=== PATIENT | female | born 1990 | race Hispanic/Latino ===

== ENCOUNTER 2016-12-19 22:01 | Emergency (ER) | payer OTHER ==
[~2016-12-19] VITALS: Ht 167.6 cm; Wt 73.6 kg
[~2016-12-19 22:01] MED LIST: HYDR-4003 PO; IBUP800T28 PO; PREN-56 PO
[2016-12-19 22:02] VITALS: BP 135/75; PULSE 102; RESP 20; O2SAT 100
[2016-12-19] MEDS ORDERED: 0.9% Sodium Chloride 1,000 ML IV ONE ×2 (22:15→23:55)
[2016-12-19] MEDS ORDERED: HYDROmorphone 0.5 mg/0.5 mL iSecure Syringe IVPUSH PRN (22:15)
[2016-12-19] MEDS ORDERED: Ondansetron 2 mg/mL 2 mL Inj IVPUSH ONE (22:15)
--- NOTE | 2016-12-19 22:16 | ED.REPORT ---
HPI-NVD Date of Service December 19, 2016 ED Provider: Zeeshan Levy MD The patient is a 26 year old female with a history of migraines, tubal , and ovarian cysts s/p removal who presents to the ED with diffuse abdominal cramping onset yesterday, worsening at 1500 today. The pain radiates to her lower back and vagina. Associated symptoms include headache, diarrhea, and hematochezia described as "stool with blood clots" onset today. The patient took Ibuprofen at 21:30 this evening. She has had similar pain in the past associated with the ovarian cyst removal. Nursing Notes Stated Complaint: PAIN IN STOMACH Chief Complaint: Female Abdominal Pain Nursing Notes Reviewed: Yes ([employer], [employer] not reconciled) Allergies: Coded Allergies: No Known Allergies (Unverified Allergy, Unknown, 10/26/15) Scheduled [id number]/Iron Fumarate/FA/Dss ( 19 Tablet) 1 Each Tablet 1 EACH PO DAILY Scheduled PRN Hydrocodone-Acetaminophen 5-325 mg (Hydrocodone-Acetaminophen 5-325 mg) 1 Each Tablet 1-2 TABLET PO Q4H PRN PRN For Pain Hydrocodone-Acetaminophen 5-325 mg (Hydrocodone-Acetaminophen 5-325 mg) 1 Each Tablet 1-2 TABLET PO Q4-6H PRN PRN For Pain Ibuprofen (Ibuprofen) 800 Mg Tablet 800 MG PO Q6H PRN PRN For Pain General Time Seen by MD: 22:09 Chief Complaint Abd pain, cramping Hx Obtained From: Patient Arrived By: Walk-in Onset Occurred: Yesterday Symptom Duration: Since onset Diarrhea: Diarrhea is bloody Location: : Diffuse Quality: Cramping, Painful Radiation: : To back Severity: Current: Moderate Severity: Maximum: Moderate Pertinent Negative: Relieved by nothing Recent Healthcare: No recent doctor visit Similar Sx Previous: Yes Past Medical History Past Medical History Notes: OB: Dr. 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 Ambulatory Status Independent Review of Systems Review of Systems Note: + Vaginal pain Constitutional: Denies: Fever GI: Reports: Abdominal pain (Diffuse cramping ), Diarrhea, Hematochezia (Stool with blood clots) Neurologic: Reports: Headache Complete sys rev & neg: except as marked. Respiratory: Denies: Non-productive cough, Shortness of breath Musculoskeletal: Reports: Back pain Physical Exam Initial Vital Signs Vital Signs (First) Date Time Temp Pulse Resp B/P Pulse Ox O2 Delivery O2 Flow Rate FiO2 12/19/16 22:02 37.4 102 20 135/75 100 Room Air Initial VS: Reviewed, Vital signs abnormal (tachycardia) Head / Eyes: Atraumatic, Normocephalic Neck: Supple, Full range of motion Respiratory: Breath sounds normal, Clear to auscultation, No respiratory distress Cardiovascular: Regular rate & rhythm, Heart sounds normal Skin: Warm, Dry, No cyanosis Neurologic: Alert, Oriented, Nonfocal Psychiatric: Mood/affect normal, Behavior normal, Normal thought content General/Constitutional: Awake, Alert Appearance / Presentation: Positive: Uncomfortable Patient is holding her abdomen Abdomen: Soft, No palpable mass Tenderness/Guarding/Rebound: Positive: Tender diffuse Interpretation & Diagnostics URINE : Negative URINE DIPSTICK: Bedside Urine Specific [place] * 1.015 Bedside Urine pH * 6 Bedside Urine Leukocyte Esterase * Trace Bedside Urine Nitrite * Negative Bedside Urine Protein * Trace Bedside Urine Glucose * Normal Bedside Urine Ketones * Negative Bedside Urine Urobilinogen * Normal Bedside Urine Bilirubin * Negative Bedside Urine Occult Blood * Trace Urine to Lab * Yes Lab Results Interpretation Result Diagram: 12/19/16223712/19/162237 Test 12/19/16 22:38 White Blood Count 9.7th/mm3 (3.8-10.1) Red Blood Count 4.65mil/mm3 (3.90-5.20) Hemoglobin 13.6g/dL (12.0-15.6) Hematocrit 40.6% (35.0-46.0) Mean Corpuscular Volume 87.3fL (81-100) Mean Corpuscular Hemoglobin 29.2pg (27.0-35.0) Mean Corpuscular Hemoglobin Concent 33.5% (32.0-37.0) Red Cell Distribution Width 13.5% (12.3-15.4) Platelet Count 230bil/L (150-400) Neutrophils (%) (Auto) 77.8% (40-74) Lymphocytes (%) (Auto) 11.1% (14-46) Monocytes (%) (Auto) 9.9% (4-12) Eosinophils (%) (Auto) 1.0% (0-5) Basophils (%) (Auto) 0.1% (0-3) Sodium Level 138mEq/L (134-144) Potassium Level 4.0mEq/L (3.5-5.2) Chloride Level 105mEq/L (97-108) Carbon Dioxide Level 17mmol/L (18-29) Blood Urea Nitrogen 14mg/dL (6-20) Creatinine 0.52mg/dL (0.57-1.00) Estimat Glomerular Filtration Rate 206mL/min (>59) Glucose Level 116mg/dL (60-99) Lactic Acid Level 1.2mmol/L (0.4-2.0) Calcium Level 9.0mg/dL (8.5-10.1) Total Bilirubin 0.2mg/dL (0.0-1.2) Aspartate Amino Transf (AST/SGOT) 16U/L (0-50) Alanine Aminotransferase (ALT/SGPT) 16U/L (0-32) Alkaline Phosphatase 95U/L (25-150) Total Protein 7.2g/dL (6.4-8.4) Albumin 3.7g/dL (3.4-5.0) Human Chorionic Gonadotropin, Qual Negative (Negative) Lab Results Interpretation: CBC normal CMP low CO2 consistent dehydration Negative After numerous hours, unfortunately patient was unable to provide a stool sample for testing. Re-Eval/Medical Decision Med Decision/Clinical Course This is a 26-year-old healthy female who presents complaining of onset of bloody diarrhea and abdominal cramps. She has no recent travel history, no known diarrheal exposures, no previous history of inflammatory bowel disease or colitis, no additional complaints. She is uncomfortable on initial evaluation, but is afebrile and nontoxic. She IV placed, laboratories were normal except for a mildly low CO2, and she was hydrated C pain medicines complete resolution of discomfort. She is maintained in the department for a number of hours in an attempt to obtain a stool sample for further testing as the stool tests to be the most useful in identifying actual potential pathology at this stage. The patient was unable to have further diarrhea vital sample, feel so well she wishes to go home. I had written a prescription for some hydrocodone, the patient essential need to return if she is having ongoing diarrhea for stool testing. Invasive etiology cannot be excluded. However the patient clinically appears well's nontoxic, afebrile so. Antibodies are also not indicated. She has no known Escherichia coli LH157 risk factors. She has no evidence of renal failure. The patient clinically appears well and is being discharged. Condition with routine and return precautions reviewed. Source of Hx: Old records Re-Evaluation/Progress #1: Time of Eval: 22:56 Patient Status: Condition improved, Pain improved Re-Evaluation/Progress Note: Patient is feeling much better. Re-Evaluation/Progress #2: Time of Eval: 00:22 Patient Status: Condition improved Re-Evaluation/Progress Note: Discussed with patient and her family lab results and plan for stool sample collection. Re-Evaluation/Progress #3: Time of Eval: 01:15 Patient Status: Condition improved Re-Evaluation/Progress Note: Patient has been unable to provide a stool sample but is feeling better and requests to be discharged. Discussed with patient lab results, diagnosis, and plan for discharge. Follow-up and return to the ER instructions given. Patient agrees with plan for care and all questions were addressed. Differential Diagnosis: Negative: Drug toxicity, Drug-med reaction, GERD, Peptic ulcer disease, Counseled Regarding: Diagnosis, Lab results, Need for follow-up, When/why to return to ED Discharge & Departure Impression: Primary Impression: Bloody diarrhea Disposition: Home Discharge Condition All VS Reviewed: Yes Condition: Improved Additional Instructions: 1. Your blood tests were normal except for markers of mild dehydration. 2. The most important test in determining the cause of the bloody diarrhea is the stool test. We were not able to get a stool sample during your visit. If you are continuing to have bloody diarrhea, return to the ED so we can try again to get a sample. 3. Rest. 4. Take hydrocodone/APAP 5/325 1-2 tabs up to every 4-6 hours for cramping/ pain. NOTE: This medication contains a narcotic and causes drowsiness. No driving for at least 4-6 hours after taking. 5. Drink small, frequent sips of fluids. Slowly advance diet as tolerated 6. Return again to the emergency department if new, worsening, or uncontrolled symptoms occur. Referrals: Rosendo Mireles MD (PCP) Scribe Attestation Portions of this note were transcribed by Caridad Fry. I, Dr. Levy, personally performed the history, physical exam, and medical decision-making; I reviewed and confirmed the accuracy of the information in the transcribed note. Signed by: Chaz Raines, 12/20/2016, 01:20 copies to: Rosendo Mireles MD, Matthew F MD December 19, 2016 22:16 CARIDAD FRY December 19, 2016 22:18
[2016-12-19 22:42] LABS: BASOPHILS % (AUTO) 0.1 % (0-3); MONOCYTES % (AUTO) 9.9 % (4-12); Mean Corpuscular Hemoglobin 29.2 pg (27.0-35.0); Mean Corpuscular Volume 87.3 fL (81-100); NEUTROPHILS % (AUTO) 77.8 % (40-74); Platelet Count 230 bil/L (150-400)
[2016-12-19] MEDS ORDERED: _HYDROcodone/APAP 5-325 mg Tablet PO PRN (23:55)
[2016-12-20] MEDS ORDERED: HYDR-4003 PO (00:33)
[2016-12-20 01:19] VITALS: BP 121/58; PULSE 86; RESP 20; O2SAT 100
[2016-12-21] MEDS ORDERED: IBUP-1827 PO (19:49)
== END 2016-12-20 01:19 | disposition home or self-care (01) ==
LOC: SED 22:01
DX: K92.1 Melena (principal); R51 Headache
CPT/HCPCS: 36415; 80053; 81025; 83605; 84703; 85025; 96361; 96374; 96375; 99284; J1170; J2405; J7030

== ENCOUNTER 2016-12-21 10:57 | Inpatient (IN) | payer OTHER ==
[~2016-12-21] VITALS: Ht 167.6 cm; Wt 74.0 kg
[2016-12-21 11:04] VITALS: BP 100/57; PULSE 102; RESP 14; O2SAT 98
--- NOTE | 2016-12-21 12:35 | ED.REPORT ---
HPI-Abd Pain F Under 40 Date of Service December 21, 2016 ED Provider: Breezy Ramirez DO The patient is a 26 year old female with history of ovarian cysts and prior tubal , who returns to the emergency department complaining of worsening bloody diarrhea that began a few days ago. She is having about 6 episodes of diarrhea per hour. She describes the diarrhea as "bright red blood. " She also complains of lower abdominal cramping that radiates into her back and groin, headache, and nausea. She describes the pain as sharp, crampy, and constant. She was seen in the emergency department 2 days ago for the same. She was unable to provide a stool sample at that time. She was stable and discharged home on Vicodin. She has been taking the Vicodin with temporary relief. Her symptoms have worsened since she was seen. She brought a stool sample with her today. She denies dysuria, urinary frequency/urgency changes, vaginal bleeding, vaginal discharge, vomiting, fever or chills. Nursing Notes Stated Complaint: ABDOMINAL PAIN/BLOOD IN STOOL Chief Complaint: Female Abdominal Pain Nursing Notes Reviewed: Yes Allergies: Coded Allergies: No Known Allergies (Unverified Allergy, Unknown, 10/26/15) Scheduled PRN Hydrocodone-Acetaminophen 5-325 mg (Hydrocodone-Acetaminophen 5-325 mg) 1 Each Tablet 1-2 TABLET PO Q4H PRN PRN For Pain Ibuprofen (Ibuprofen) 800 Mg Tablet 800 MG PO Q6H PRN PRN For Pain General Time Seen by MD: 12:33 Chief Complaint Other (bloody stools) Hx Obtained From: Patient Arrived By: Walk-in Sudden in Onset?: Yes Onset Occurred: 4 days ago Symptom Duration: Since onset Progression since Onset: Constant, Gradually worsening Location: : Abdomen lower Quality: Cramping, Sharp Radiation: : Back: Inguinal right Severity: Current: Mild Severity: Maximum: Moderate Recent Healthcare: No recent hospitalization, Recent doctor visit Similar Sx Previous: No Past Medical History Past Medical History Notes: OB: Dr. 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 Ambulatory Status Independent Review of Systems Constitutional: Denies: Chills, Fever GI: Reports: Abdominal pain, Diarrhea, Hematochezia, Nausea, Denies: Vomiting Female: Denies: Dysuria, Urinary frequency, Urinary urgency, Urination decreased, Urination increased, Vaginal bleeding - abnl, Vaginal discharge Musculoskeletal: Reports: Back pain Complete sys rev & neg: except as marked. Neurologic: Reports: Headache Physical Exam Initial Vital Signs Vital Signs (First) Date Time Temp Pulse Resp B/P Pulse Ox O2 Delivery O2 Flow Rate FiO2 12/21/16 11:04 36.4 102 14 100/57 98 Room Air Initial VS: Reviewed Head / Eyes: Atraumatic, Normocephalic, PERRL ENT: Mucous membranes moist, Conjunctiva normal, No scleral icterus Neck: Supple, Non-tender, Full range of motion Lymphatic: No lymphadenopathy Extremities: Vascular intact, Neuro intact, No swelling, No tenderness Skin: Warm, Dry, No cyanosis Neurologic: Alert, Oriented, Nonfocal Psychiatric: Mood/affect normal, Behavior normal, Normal thought content General/Constitutional: Awake, Alert, Cooperative Respiratory / Chest: Atraumatic, Breath sounds NL, Breath sounds = bilat, No respiratory distress, No rales, No rhonchi, No wheezing Cardiovascular: Heart rate NL, Regular rhythm, Heart sounds NL, No gallop, No murmurs, No rubs, Peripheral circulation NL Abdomen: Soft, No guarding, No rebound, BS normoactive, No distention, No hernia, No palpable mass, No pulsatile mass Tenderness/Guarding/Rebound: Positive: Tender diffuse (mild) Back: Atraumatic, Inspection NL Rectum / Perineum: Atraumatic, No gross blood, No fissures, No hemorrhoids, No mass, Sphincter tone NL Rectal for Blood: Positive: Blood - occult heme + (faint) Interpretation & Diagnostics Lab Results Interpretation Result Diagram: 12/21/16 1400 12/21/16 1205 Test 12/21/16 12:05 12/21/16 14:00 12/21/16 14:31 White Blood Count 10.9th/mm3 (3.8-10.1) Red Blood Count 4.91mil/mm3 (3.90-5.20) Mean Corpuscular Volume 85.7fL (81-100) Mean Corpuscular Hemoglobin 28.9pg (27.0-35.0) Mean Corpuscular Hemoglobin Concent 33.7% (32.0-37.0) Red Cell Distribution Width 13.4% (12.3-15.4) Platelet Count 239bil/L (150-400) Neutrophils (%) (Auto) 79.3% (40-74) Lymphocytes (%) (Auto) 11.6% (14-46) Monocytes (%) (Auto) 8.5% (4-12) Eosinophils (%) (Auto) 0% (0-5) Basophils (%) (Auto) 0.2% (0-3) Sodium Level 136mEq/L (134-144) Potassium Level 4.4mEq/L (3.5-5.2) Chloride Level 99mEq/L (97-108) Carbon Dioxide Level 22mmol/L (18-29) Blood Urea Nitrogen 9mg/dL (6-20) Creatinine 0.76mg/dL (0.57-1.00) Estimat Glomerular Filtration Rate 133mL/min (>59) Glucose Level 109mg/dL (60-99) Calcium Level 9.2mg/dL (8.5-10.1) Total Bilirubin 0.3mg/dL (0.0-1.2) Aspartate Amino Transf (AST/SGOT) 65U/L (0-50) Alanine Aminotransferase (ALT/SGPT) 68U/L (0-32) Alkaline Phosphatase 82U/L (25-150) Total Protein 7.0g/dL (6.4-8.4) Albumin 3.7g/dL (3.4-5.0) Hemoglobin 11.6g/dL (12.0-15.6) Hematocrit 34.7% (35.0-46.0) Hold Urine Received (Received) CT Abd / Pelvis Interpretation IMPRESSION: Colitis appears present, relatively mild in overall severity involving the left third of the transverse colon, descending colon and the sigmoid and rectum to a mild degree. No diverticulitis or abscess is suspected. Dictated by: Zelalem Mendez M.D. on 12/21/2016 at 15:09 Study type: Abdominal CT IV contrast Interpretation / Wet Read by: Interpret - Radiologist Re-Eval/Medical Decision Med Decision/Clinical Course Med Decision/Clinical Course: Ongoing bloody stools and abdominal pain. She has had multiple bloody stools while in the ER. Currently waiting on stool studies. Patient will be admitted for pain management fluid hydration. Source of Hx: Old records Re-Evaluation/Progress : Time of Eval: 16:58 Re-Evaluation/Progress Note: Rechecked the patient. She has continued pain and has had 3 bloody bowel movements while she has been here. Discussed plan to wait for stool sample. The patient would like to be admitted to the hospital overnight. She denies any meth or cocaine use. Consultation #1: Referral / Consult Name: Josep Damon MD Requested Call at: 16:24 Call Returned at: 16:32 Awning Hanger Supervisor: Agrees with eval, Agrees with plan Note: Spoke to the on-call educational aid about the patient's case. He is unsure if the patient should be admitted or discharged. If she is discharged he can see her in clinic in 1 week. Will wait for stool sample. Consultation #2: Referral / Consult Name: Miko Banks MD Consulted With: Hospitalist Requested Call at: 17:02 Call Returned at: 17:21 Awning Hanger Supervisor: Will see patient, Agrees with eval, Agrees with plan, Accepts admit Counseled Regarding: Diagnosis, Lab results, Need for admission Discharge & Departure Primary Impression: Colitis Additional Impression: Bloody diarrhea Disposition: ADMITTED TO HOSPITAL Discharge Condition All VS Reviewed: Yes Condition: Stable Referrals: Rosendo Mireles MD (PCP) [place] Attestation Portions of this note were transcribed by Margaret Mejia. I, Dr. Ramirez personally performed the history, physical exam and medical decision-making; I reviewed and confirmed the accuracy of the information in the transcribed note. Signed by: Chaz Olvera, 12/21/2016 at 1730. copies to: Rosendo Mireles MD, Timothy S DO December 21, 2016 12:35 Margaret Mejia December 21, 2016 12:50
[2016-12-21 12:38] LABS: BASOPHILS % (AUTO) 0.2 % (0-3); EOSINOPHILS % (AUTO) 0 % (0-5); MONOCYTES % (AUTO) 8.5 % (4-12); Mean Corpuscular Hemoglobin 28.9 pg (27.0-35.0); Mean Corpuscular Volume 85.7 fL (81-100); NEUTROPHILS % (AUTO) 79.3 % (40-74); Platelet Count 239 bil/L (150-400)
[2016-12-21] MEDS ORDERED: 0.9% Sodium Chloride 1,000 ML IV ONE ×2 (13:00→16:35)
[2016-12-21] MEDS: Ondansetron 2 mg/mL 2 mL Inj IVPUSH PRN ×3 (13:25→23:31)
--- NOTE | 2016-12-21 15:13 | DRSVH ---
PROCEDURE: CT ABDOMEN AND PELVIS WITH CONTRAST (PNL-7102) INDICATIONS: abd pain, bloody stools TECHNIQUE: After the administration of intravenous contrast, 5 mm thick sections acquired from the diaphragm to the symphysis. 5 mm coronal and sagittal reformats were acquired. For radiation dose reduction, the following was used: automated exposure control, adjustment of mA and/or kV according to patient siz e. COMPARISON: [facility], CT, ABD/PELVIS W/CON (PNL), 09/28/2010, 0:31. FINDINGS: Image quality: Excellent. ABDOMEN: Lung bases: Lung bases are clear. Heart size is normal. Solid organs: Liver and spleen are normal in size and enhancement. Gallbladder appears normal. Ismael iary system is non dilated. Pancreas enhances normally. No adrenal nodules. Kidneys demonstrate no rmal size and enhancement, without hydronephrosis. Peritoneum and bowel: Bowel loops demonstrate normal wall thickness and caliber. No free fluid or a ir. Nodes and vessels: No retroperitoneal or mesenteric adenopathy by size criteria. Aorta and inferior vena cava are normal in size. Miscellaneous: No ventral hernias. PELVIS: Genitourinary: Bladder wall thickness is normal. Miscellaneous: No inguinal hernias or adenopathy. Mild sigmoid and rectal wall thickening, mild per icolonic edema in the fatty soft tissues immediately adjacent. No sign of abscess formation or diver ticulitis. The inflammatory process appears to extend into the transverse colon to a mild degree, te rminating at approximately the junction of the middle and lateral left transverse colon. Bones: No suspicious bony lesions. No vertebral body compression fractures. IMPRESSION: Colitis appears present, relatively mild in overall severity involving the left third of the transverse colon, descending colon and the sigmoid and rectum to a mild degree. No diverticuliti s or abscess is suspected. Dictated by: Zelalem Mendez M.D. on 12/21/2016 at 15:09 Approved by: Zelalem Mendez M.D. on 12/21/2016 at 15:12
[2016-12-21] MEDS ORDERED: Alum-Mag Hydrox-Simeth 30 mL Suspension PO PRN (17:25)
[2016-12-21] MEDS ORDERED: metroNIDAZOLE Inj 1,000 MG in IV Premix 1 EACH IV ONE (18:00)
[2016-12-21] MEDS ORDERED: levoFLOXacin Inj 750 MG in IV Premix 1 EACH IV ONE (18:00)
--- NOTE | 2016-12-21 18:08 | PCM.HPMED ---
Subjective Date of Service December 21, 2016 Primary Provider: Admitting Physician: Miko Banks MD Primary Care Physician: Rosendo Mireles MD Attending Physician: Miko Banks MD Chief Complaint: Abdominal pain, bloody diarrhea History of Present Illness: 26-year-old female with past medical history came in with progressive worsening abdominal pain, diarrhea, bloody stool About 4 days ago, patient started having watery diarrhea, mild degree of abdominal pain continuously, also developed nausea, but no vomiting, pt did not recall any unusual food intake, denied any sick contact. Next day, diarrhea was worse, patient also had some headache, but thought it was from migraine, it did not last long. Next day 2days ago, Patient came to the ED, but was sent home after supportive tx since then, patient started having some blood clots with diarrhea, today, abdominal pain got worse and noticed pure red watery diarrhea, without stool contents, had 3 similar stools in ED. no mucus noticed. this was first episode of blood stools per patient, denied FHx of IBD ED. VS [id number], [id number], afebrile, 98%on RA. stool PCR sent. Abd CT showed diffuse mild colitis involving the left third of the transverse colon, descending colon and the sigmoid and rectum to a mild degree. Review of Systems: Pertinent positives as noted in history of present illness. All other systems were reviewed and are negative Allergies Coded Allergies: No Known Allergies (Unverified Allergy, Unknown, 10/26/15) Home Medications Not taking any prescribed or [id number]-oerczuh medicines PMH No significant medical problem Surgical History Surgery for tubal Ovarian cyst removal Family History No pertinent, no history of inflammatory bowel disease Social History Hx Alcohol Use: No Hx Substance Use: No Hx Tobacco Use: No Smoking Status: Never Smoker Additional Information Lives with grandmother Exam Vital Signs Vital Sign - Last Date Time Temp Pulse Resp B/P Pulse Ox O2 Delivery O2 Flow Rate FiO2 12/21/16 11:04 36.4 102 14 100/57 98 Room Air Exam NAD, mildly distressed, weak due to abdominal pain no JVD, MMM, no LAD RRR, nl s1, s2 no mrg CTAB, no w,c S,ND, diffuse tenderness, hypoactive bowel sounds warm, no edema, pulses 2/2 Lab and Diagnostics Result Diagram: 12/21/16 1400 12/21/16 1205 X-Rays, CTs and MRIs PROCEDURE: CT ABDOMEN AND PELVIS WITH CONTRAST ([id number]) INDICATIONS: abd pain, bloody stools TECHNIQUE: After the administration of intravenous contrast, 5 mm thick sections acquired from the diaphragm to the symphysis. 5 mm coronal and sagittal reformats were acquired. For radiation dose reduction, the following was used: automated exposure control, adjustment of mA and/or kV according to patient size. COMPARISON: [facility], CT, ABD/PELVIS W/CON (PNL), 09/28/2010, 0: 31. FINDINGS: Image quality: Excellent. ABDOMEN: Lung bases: Lung bases are clear. Heart size is normal. Solid organs: Liver and spleen are normal in size and enhancement. Gallbladder appears normal. Biliary system is non dilated. Pancreas enhances normally. No adrenal nodules. Kidneys demonstrate normal size and enhancement , without hydronephrosis. Peritoneum and bowel: Bowel loops demonstrate normal wall thickness and caliber. No free fluid or air. Nodes and vessels: No retroperitoneal or mesenteric adenopathy by size criteria. Aorta and inferior vena cava are normal in size. Miscellaneous: No ventral hernias. PELVIS: Genitourinary: Bladder wall thickness is normal. Miscellaneous: No inguinal hernias or adenopathy. Mild sigmoid and rectal wall thickening, mild pericolonic edema in the fatty soft tissues immediately adjacent. No sign of abscess formation or diverticulitis. The inflammatory process appears to extend into the transverse colon to a mild degree, terminating at approximately the junction of the middle and lateral left transverse colon. Bones: No suspicious bony lesions. No vertebral body compression fractures. IMPRESSION: Colitis appears present, relatively mild in overall severity involving the left third of the transverse colon, descending colon and the sigmoid and rectum to a mild degree. No diverticulitis or abscess is suspected. Dictated by: Zelalem Mendez M.D. on 12/21/2016 at 15:09 Approved by: Zelalem Mendez M.D. on 12/21/2016 at 15:12 Assessment & Plan Acute, active acute, new onset hematochezia, POA, CT showed diffuse colitis involving rectum as well. Given it's first episode, young age, no PMH ddx: infectious colitis vs IBD. FOBT+ in ED. -clear liquid for tonight, NPO after MN, for possible EGD/c-scope -will consult GI tomorrow AM if stools neg for infection -flagyl, levaquin for now until stool PCR returns -given dehydrated state, will continue IVF 150cc/hr NS, repletes lytes K>4,Mg>2 -PPI iv BID, H2 hillary prn, zofran prn for n/v, -tylenol prn for pain, -trends h/h, transfuse hgb target>7 dispo:Patient will be admitted with inpatient status with expectation of inpatient therapy for more than 2 midnights diet:clear, NPO after MN dvt ppx:SCD Full code Time spent 65min Miko Banks MD December 21, 2016 18:08
[2016-12-21] MEDS ORDERED: Pantoprazole 4 mg/mL 10 mL Inj IVPUSH ONE (18:10)
[2016-12-21 18:31] VITALS: BP 103/56; PULSE 102; RESP 16; O2SAT 98
[2016-12-21 18:32] VITALS: BP 108/68; PULSE 103; RESP 20; O2SAT 99
[2016-12-21] MEDS: HYDROmorphone 1 mg/mL Inj IVPUSH PRN ×2 (18:36→21:54)
[2016-12-21] MEDS: 0.9% Sodium Chloride 1,000 ML IV SCH (18:36)
--- NOTE | 2016-12-21 19:24 | NUR ---
Admit Pt on unit at 1825 in [facility], able to transfer self to bed. Pt A&O x 3, SIU, low BP and elevated HR, pt warm. Pt has 9/10 abdominal pain, medications given and IV connected to fluids. Pt on RA. Pt oriented to room, call light and visiting hours. Pt able to have small BM and sample sent to lab since ED RN was unsure if she had sent enough stool earlier. Bed in low, call light in reach.
[2016-12-21] MEDS ORDERED: IBUP-1827 PO (19:49)
[2016-12-21 20:22] VITALS: BP 107/70; PULSE 90; RESP 20; O2SAT 99
--- NOTE | 2016-12-21 22:28 | CONS ---
[address] [address] CONSULTATION REPORT PATIENT: SHALOM DAWKINS : 1990 MR#: [id number] ADMIT: 12/21/2016 JOB ID: [id number] DATE OF SERVICE: 12/21/2016 It was a pleasure seeing this patient at [facility] service for evaluation of colitis and bloody diarrhea. This is a 26-year-old lady who was in her usual state of health until last week. The patient started having abdominal cramping in the lower abdomen continuously and started having watery diarrhea. Later, developed nausea. During this time, she did not have any unusual food. Nobody in her household was sick. The last time she had any kind of meat such as chicken was at her uncle's house last week, but nobody was sick other than herself. There was no sick contact. There was no camping. The following day, she has increased frequency of diarrhea as well as the quantity. For the next couple of days, this got worse and she started seeing blood in the stools. She came to the ED and in the ED they sent her home because she did not meet admission criteria. Then she came back again with worsening abdominal pain, having blood in the diarrhea with clots. At times, she only saw pure red watery diarrhea without any stools. In the ED, she was hypotensive, tachycardic and CT showed diffuse mild colitis involving the left 3rd of the transverse colon, descending colon, sigmoid colon, and, to some extent, the rectum. They also did stool studies which came back positive for salmonella, negative for Giardia. Currently, she is complaining of abdominal pain. Some nausea. No vomiting. Patient denies fever, chills, headaches, blurred vision, dizziness, lightheadedness, chest pain, shortness of breath. She has fatigue, weakness. No skin rash or joint pain and she is still having diarrhea. Unsure whether she lost any weight. ALLERGIES: To no drugs. MEDICATIONS: She is not taking medications at home. PAST SURGICAL HISTORY: Tubal . Ovarian cyst removal. PAST MEDICAL HISTORY: Noncontributory. FAMILY HISTORY: Noncontributory. SOCIAL HISTORY: Denies alcohol, substance abuse, tobacco. MEDICATIONS IN THE HOSPITAL: 1. Dilaudid. 2. Tylenol. 3. Pantoprazole. 4. Flagyl. 5. Levofloxacin. 6. Zofran. 7. Maalox. PHYSICAL EXAMINATION: Vitals: Temp 36.6, pulse 90, respirations 20, blood pressure 107/70. Head and neck: No icterus, no lymphadenopathy. Lungs clear. Cardiovascular: Regular rate and rhythm. Normal S1, S2. Abdomen is soft, mildly distended. Bowel sounds are present with diffuse tenderness and mild rebound, but there is no guarding or firmness. Extremities: No pitting edema of the ankles. Skin shows no obvious jaundice. Radial pulses bilateral strong and intact. White count is 10.9, hemoglobin 14, at 2 o'clock 11.6, platelets of 239,000. Chemistry showed an AST of 65, ALT 68. CT scan as described above. 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 She is on Cipro and levofloxacin. The contact of salmonella is in question. It seems like nobody else at her house is sick, therefore all the contamination probably did not happen in her home. Therefore, it is possible that the contamination occurred outside her home. However, she has not got any unusual contacts or unusual travels. She did not drink any contaminated water. This is a very aggressive form of Salmonella. She has normal bilirubin. AST and ALT are mildly elevated. Creatinine is normal at 0.76. It appears that antibiotics are already committed. We need to keep an eye on the creatinine function and hemoglobin level as well. I do not think there is evidence of hemolytic anemia, however, if the bilirubin starts going up, as well as persistence of anemia, consider getting haptoglobin, LDH and peripheral blood smear for hemolytic anemia. We will follow the LFTs for now. It is also possible that if she has contaminated water from somewhere or any kind of contamination, she may be co-infected with hepatitis A. Therefore, would consider getting hepatitis A/B serologies and while doing that, I would get the full panel including acute hepatitis A, hepatitis B and hepatitis C profiles. Support her nutrition. KONSTANTIN
[2016-12-22] VITALS (7 sets, daily range): BP systolic 102–118; BP diastolic 62–74; PULSE 78–103; RESP 16–20; O2SAT 98–100
--- NOTE | 2016-12-22 02:08 | NUR ---
Stool PCR Stool PCR results noted to be positive for salmonella at beginning of shift. Patient currently on Flagyl & Levaquin IV. FYI page sent to Dr. Stevenson @ [phone]. No new orders rec'd.
[2016-12-22] MEDS: HYDROmorphone 1 mg/mL Inj IVPUSH PRN ×3 (02:36→20:02)
[2016-12-22] MEDS: 0.9% Sodium Chloride 1,000 ML IV SCH ×2 (06:17→13:23)
[2016-12-22] MEDS: Ondansetron 2 mg/mL 2 mL Inj IVPUSH PRN (07:10)
[2016-12-22] MEDS ORDERED: Pantoprazole 4 mg/mL 10 mL Inj IVPUSH SCH (07:30)
[2016-12-22] MEDS ORDERED: metroNIDAZOLE Inj 1,000 MG in IV Premix 1 EACH IV SCH (08:30)
[2016-12-22] MEDS: levoFLOXacin Inj 750 MG in IV Premix 1 EACH IV SCH (08:38)
[2016-12-22 08:44] LABS: BASOPHILS % (AUTO) 0.1 % (0-3); EOSINOPHILS % (AUTO) 0.3 % (0-5); MONOCYTES % (AUTO) 11.9 % (4-12); Mean Corpuscular Hemoglobin 28.8 pg (27.0-35.0); NEUTROPHILS % (AUTO) 72.6 % (40-74); Platelet Count 235 bil/L (150-400)
--- NOTE | 2016-12-22 08:56 | NUR ---
Social Work- Screen Note Data: EMR reviewed. Pt is a 26 year old female admitted 12/21/16 for colitis per H&P. Pt's insurance is [employer]. Pt's PCP is Rosendo Mireles MD. Pt's NOK is Kelly Sanchez [phone]. SW met with pt at bedside regarding discharge plan, SW role explained. Pt alert and oriented x3. Pt resides with her grandmother in [place]. Pt is independent at baseline. Pt has a young daughter at home. Pt denied any discharge needs. Pt has no concerns about obtaining prescriptions after this hospitalization. Pt has no DPOA, SW explained DPOA paperwork and provided this to pt at bedside. Pt to discharge home with her friend to transport via POV. No discharge needs identified at this time. SW will continue to follow if needs arise. Assessment: Pt who is independent at baseline. Plan: Pt to discharge home with her friend to transport via POV. No discharge needs identified at this time. SW will continue to follow if needs arise. Matilda Guo MSW
[2016-12-22 09:10] LABS: Magnesium 1.6 mg/dL (1.6-2.6)
--- NOTE | 2016-12-22 10:13 | PCM.PNMED ---
Subjective Date of Service Dec 22, 2016 Subjective pt still has bloody stools, less red, pinkish w/o mucus, stool content c/o persistent abdominal pain, diffusely, nausea, no vomiting overall felt better today, wants to start diet Salmonella positive in PCR, awaits confirmatory test from [facility] Exam Vital Signs Vital Sign - Last Date Time Temp Pulse Resp B/P Pulse Ox O2 Delivery O2 Flow Rate FiO2 12/22/16 09:16 36.6 89 16 116/72 99 Room Air Intake and Output 12/21/16 12/21/16 12/22/16 Cumulative From/Thru 15:00 23:00 07:00 12/21/16 11:04 - 12/22/16 06:25 Intake Total 999 ml 1994 ml 2993 ml Output Total 700 ml 700 ml Balance 999 ml 1294 ml 2293 ml Intake Oral 800 ml 800 ml IV Total 999 ml 1194 ml 2193 ml Output Urine Total 700 ml 700 ml # Voids 1 1 2 # Bowel Movements 5 5 Exam mildly distressed due to abdominal pain, more comfortable than yesterday no JVD, MMM, no LAD RRR, nl s1, s2 no mrg CTAB, no w,c S,ND, diffuse tenderness, hypoactive bowel sounds warm, no edema, pulses 2/2 IVs and Medications Medications Reviewed: Medications were reviewed in detail Lab and Diagnostics Result Diagram: 12/22/16 0835 12/22/16 0835 X-Rays, CTs and MRIs PROCEDURE: CT ABDOMEN AND PELVIS WITH CONTRAST (PNL-7102) INDICATIONS: abd pain, bloody stools TECHNIQUE: After the administration of intravenous contrast, 5 mm thick sections acquired from the diaphragm to the symphysis. 5 mm coronal and sagittal reformats were acquired. For radiation dose reduction, the following was used: automated exposure control, adjustment of mA and/or kV according to patient size. COMPARISON: [facility], CT, ABD/PELVIS W/CON (PN), 09/28/2010, 0: 31. FINDINGS: Image quality: Excellent. ABDOMEN: Lung bases: Lung bases are clear. Heart size is normal. Solid organs: Liver and spleen are normal in size and enhancement. Gallbladder appears normal. Biliary system is non dilated. Pancreas enhances normally. No adrenal nodules. Kidneys demonstrate normal size and enhancement , without hydronephrosis. Peritoneum and bowel: Bowel loops demonstrate normal wall thickness and caliber. No free fluid or air. Nodes and vessels: No retroperitoneal or mesenteric adenopathy by size criteria. Aorta and inferior vena cava are normal in size. Miscellaneous: No ventral hernias. PELVIS: Genitourinary: Bladder wall thickness is normal. Miscellaneous: No inguinal hernias or adenopathy. Mild sigmoid and rectal wall thickening, mild pericolonic edema in the fatty soft tissues immediately adjacent. No sign of abscess formation or diverticulitis. The inflammatory process appears to extend into the transverse colon to a mild degree, terminating at approximately the junction of the middle and lateral left transverse colon. Bones: No suspicious bony lesions. No vertebral body compression fractures. IMPRESSION: Colitis appears present, relatively mild in overall severity involving the left third of the transverse colon, descending colon and the sigmoid and rectum to a mild degree. No diverticulitis or abscess is suspected. Dictated by: Zelalem Mendez M.D. on 12/21/2016 at 15:09 Approved by: Zelalem Mendez M.D. on 12/21/2016 at 15:12 Assessment & Plan Acute, active acute, new onset hematochezia secondary to Salmonella colitis POA, CT showed diffuse colitis involving rectum as well. -clinically improving with current tx -appreciate follow up by GI -continue clear liquid, advance as tolerate -stopped flagyl today,continue levaquin -continue IVF 100cc/hr NS, repletes lytes K>4,Mg>2 -s/p PPI iv BID stopped today, H2 hillary prn, zofran prn for n/v, -tylenol prn for pain, mild acute anemia likely from direct blood loss with infectious colitis, initially FOBT+, no signs of hemolytic process given LDH level, -h/h stable with active mild hematochezia, improving -trends h/h, transfuse hgb target>7 -awaits retic count, haptoglobin mild transaminitis, POA, initially concern for coinfection with hepatitis or Cx from salmonella, now resolved -trends LFTs for now dispo:likely 2-3more days diet:clear, advance as tolerate dvt ppx:SCD Full code Time spent 35min Miko Banks MD Dec 22, 2016 10:09
--- NOTE | 2016-12-22 15:27 | NUR ---
Infection Prevention [facility] notified of positive Salmonella in stool culture.
--- NOTE | 2016-12-22 18:01 | NUR ---
Pain / Nausea Cramping pain and stools loose continue. Per pt stools are no longer bloody and the cramping and number of times she has to go have decreased. Nausea has also decreased with the discontinued use of narcotics. Care continues
[2016-12-23 00:35] VITALS: BP 93/55; PULSE 71; RESP 20; O2SAT 98
--- NOTE | 2016-12-23 03:52 | NUR ---
PAIN/ITCHING: Pt. requested pain medication about 2 hr after receiving Ultram and Tylenol. Reported pain at 10/10 abdominal cramping. Given 1 mg of IV Dilaudid which helped control her pain, but later on she c/o feeling itchy all over. Paged hospitalist and requested Benadryl, given 25 mg of IV Benadryl one time order only, effective. Reported one small BM diarrhea tonight. Has been up voiding several times tonight. RAC IV line itching and redness under tape. Removed and placed a new IV line on left hand. Pt's boyfriend and son sleeping in rooming in with pt. A & O, vss. On going care.
[2016-12-23 04:11] LABS: Hepatitis A Antibody IgM Negative (Negative); Hepatitis B Core Antibody IgM Negative (Negative)
[2016-12-23 05:36] VITALS: BP 91/55; PULSE 68; RESP 18; O2SAT 97
[2016-12-23] MEDS: 0.9% Sodium Chloride 1,000 ML IV SCH ×2 (05:53→09:23)
[2016-12-23 07:42] VITALS: PULSE 63
[2016-12-23] MEDS: levoFLOXacin Inj 750 MG in IV Premix 1 EACH IV SCH (09:30)
--- NOTE | 2016-12-23 09:38 | PCM.PNMED ---
Subjective Date of Service Dec 23, 2016 Subjective pt was able to tolerate soft diet, had more formed stools and pinkish waterry diarrhea alternatively, less frequent BM pain is better, but still sore has appetite, willing to try regular diet spoke to Exam Vital Signs Vital Sign - Last Date Time Temp Pulse Resp B/P Pulse Ox O2 Delivery O2 Flow Rate FiO2 12/23/16 07:42 63 12/23/16 05:36 36.5 18 91/55 97 Room Air Intake and Output 12/22/16 12/22/16 12/23/16 Cumulative From/Thru 15:00 23:00 07:00 12/21/16 11:04 - 12/23/16 06:49 Intake Total 350 ml 1198 ml 4541 ml Output Total 1200 ml 1900 ml Balance 350 ml -2 ml 2641 ml Intake Oral 350 ml 640 ml 1790 ml IV Total 558 ml 2751 ml Output Urine Total 1200 ml 1900 ml # Voids 4 2 8 # Bowel Movements 2 7 Exam mildly distressed due to abdominal pain, more comfortable than yesterday no JVD, MMM, no LAD RRR, nl s1, s2 no mrg CTAB, no w,c S,ND, diffuse tenderness, hypoactive bowel sounds warm, no edema, pulses 2/2 IVs and Medications Medications Reviewed: Medications were reviewed in detail Lab and Diagnostics Result Diagram: 12/22/16 0835 12/22/16 0835 X-Rays, CTs and MRIs PROCEDURE: CT ABDOMEN AND PELVIS WITH CONTRAST (PNL-7102) INDICATIONS: abd pain, bloody stools TECHNIQUE: After the administration of intravenous contrast, 5 mm thick sections acquired from the diaphragm to the symphysis. 5 mm coronal and sagittal reformats were acquired. For radiation dose reduction, the following was used: automated exposure control, adjustment of mA and/or kV according to patient size. COMPARISON: [facility], CT, ABD/PELVIS W/CON (PN), 09/28/2010, 0: 31. FINDINGS: Image quality: Excellent. ABDOMEN: Lung bases: Lung bases are clear. Heart size is normal. Solid organs: Liver and spleen are normal in size and enhancement. Gallbladder appears normal. Biliary system is non dilated. Pancreas enhances normally. No adrenal nodules. Kidneys demonstrate normal size and enhancement , without hydronephrosis. Peritoneum and bowel: Bowel loops demonstrate normal wall thickness and caliber. No free fluid or air. Nodes and vessels: No retroperitoneal or mesenteric adenopathy by size criteria. Aorta and inferior vena cava are normal in size. Miscellaneous: No ventral hernias. PELVIS: Genitourinary: Bladder wall thickness is normal. Miscellaneous: No inguinal hernias or adenopathy. Mild sigmoid and rectal wall thickening, mild pericolonic edema in the fatty soft tissues immediately adjacent. No sign of abscess formation or diverticulitis. The inflammatory process appears to extend into the transverse colon to a mild degree, terminating at approximately the junction of the middle and lateral left transverse colon. Bones: No suspicious bony lesions. No vertebral body compression fractures. IMPRESSION: Colitis appears present, relatively mild in overall severity involving the left third of the transverse colon, descending colon and the sigmoid and rectum to a mild degree. No diverticulitis or abscess is suspected. Dictated by: Zelalem Mendez M.D. on 12/21/2016 at 15:09 Approved by: Zelalem Mendez M.D. on 12/21/2016 at 15:12 Assessment & Plan Acute, active acute, new onset hematochezia secondary to Salmonella colitis POA, CT showed diffuse colitis involving rectum as well. -clinically improving with current tx -appreciate follow up by Dr.Choi BUSBY, -advance diet as tolerate -stopped flagyl today,continue levaquin, appreciate insight from -continue IVF 100cc/hr NS, repletes lytes K>4,Mg>2 -s/p PPI iv BID stopped today, H2 hillary prn, zofran prn for n/v, -tylenol prn for pain, mild acute anemia likely from direct blood loss with infectious colitis, initially FOBT+, no signs of hemolytic process given labs-LDH,haptoglobin -h/h stable with active mild hematochezia, improving -trends h/h, transfuse hgb target>7 mild transaminitis, POA, initially concern for coinfection with hepatitis or Cx from salmonella, now resolved -trends LFTs for now dispo:likely 1-2more days, diet:soft, advance as tolerate dvt ppx:SCD Full code VTE Mechanical Devices: Intermittant Pneumatic CD Time spent 35min Miko Banks MD Dec 23, 2016 09:13
[2016-12-23 09:56] LABS: BASOPHILS % (AUTO) 0.3 % (0-3); EOSINOPHILS % (AUTO) 1.4 % (0-5); MONOCYTES % (AUTO) 9.6 % (4-12); Mean Corpuscular Hemoglobin 28.6 pg (27.0-35.0); Mean Corpuscular Volume 85.6 fL (81-100); NEUTROPHILS % (AUTO) 59.6 % (40-74); Platelet Count 239 bil/L (150-400)
[2016-12-23 10:26] LABS: Magnesium 1.6 mg/dL (1.6-2.6); Phosphorus 3.2 mg/dL (2.5-4.9)
[2016-12-23 11:52] VITALS: BP 99/58; PULSE 84; RESP 16; O2SAT 98
[2016-12-23 15:49] VITALS: BP 103/69; PULSE 73; RESP 18; O2SAT 98
[2016-12-23 17:55] VITALS: BP 105/65; PULSE 78; RESP 20; O2SAT 98
[2016-12-23] MEDS: HYDROmorphone 1 mg/mL Inj IVPUSH PRN (21:48)
[2016-12-24] VITALS (8 sets, daily range): BP systolic 101–111; BP diastolic 52–68; PULSE 55–95; RESP 16–21; O2SAT 98–100
[2016-12-24] MEDS: 0.9% Sodium Chloride 1,000 ML IV SCH ×3 (03:55→15:51)
--- NOTE | 2016-12-24 04:26 | NUR ---
Pain Pt. reporting pain 8/10 earlier in shift. Tylenol given with no effect. 0.5 mg IV Dilaudid given, and pt. was able to fall asleep afterwards. Will continue to monitor.
[2016-12-24 05:05] LABS: BASOPHILS % (AUTO) 0.4 % (0-3); EOSINOPHILS % (AUTO) 2.1 % (0-5); MONOCYTES % (AUTO) 11.1 % (4-12); Mean Corpuscular Hemoglobin 29.1 pg (27.0-35.0); Mean Corpuscular Volume 85.3 fL (81-100); NEUTROPHILS % (AUTO) 59.9 % (40-74); Platelet Count 293 bil/L (150-400)
[2016-12-24 05:45] LABS: Magnesium 1.7 mg/dL (1.6-2.6); Phosphorus 3.7 mg/dL (2.5-4.9)
--- NOTE | 2016-12-24 06:55 | CONS ---
[address] [address] CONSULTATION REPORT PATIENT: SHALOM DAWKINS : 1990 MR#: [id number] ADMIT: 12/21/2016 JOB ID: [id number] INFECTIOUS DISEASE CONSULTATION: DATE OF SERVICE: 12/23/[address] Banks for this consult. REASON FOR CONSULTATION: Salmonella dysentery. INTERVAL HISTORY: The patient is a 26-year-old totally healthy woman admitted on December 21. On or about December 19 she developed cramps in the lower abdomen. By the next day she developed cramps and diarrhea and this became more severe on December 20. She sought at evaluation in the emergency department, but was only given symptomatic therapy and went home. She returned on December 21 with more symptomatology and was then admitted to the hospital. Prior to admission she developed not only abdominal cramps and diarrhea but bloody diarrhea which was associated with headache. She also had subjective fever as well as nausea, anorexia and generalized malaise. She did not have significant chills, sweats, headache or urinary symptoms. PAST MEDICAL HISTORY: Negative. SOCIAL HISTORY: The patient lives with her family in [place]. She is a nonsmoker, nondrinker. SURGICAL HISTORY: Tubal and ovarian cyst. FAMILY HISTORY: Negative for tuberculosis. REVIEW OF SYSTEMS: She had a headache in the beginning though it is no longer an issue. No visual changes. No sore throat. No cough, shortness of breath, chest pain. She did have a coarse of nausea with diarrhea which was bloody and severe, abdominal cramps which continue until this time. No urgency, frequency, dysuria or skin rash. The rest of the review of systems is negative. PHYSICAL EXAMINATION: Reveals an healthy young woman in no acute distress. Temperature 36.5, pulse 73, respiratory rate 18, blood pressure 103/69. She is saturating well on room air. She is awake and alert. Eyes: Negative. Oral cavity: Benign. Neck: Supple. Lungs: Clear. Cardiac: Tones, no murmur. Abdomen is slightly distended. Hyperactive bowel tones are heard. There is diffuse mild tenderness elicited to the abdomen. She does not have suprapubic tenderness. The extremities are without evidence of inflammation or synovitis. No skin rash is noted. Neurologically, she is intact. LABORATORIES: Labs include a white count 10,900 on admission; now 6400. There is a normal diff, normal platelet count. Creatinine is 0.48. LFT is normal. Albumin low at 2.7. Procalcitonin 0.2. Hepatitis C negative. Micro studies include a stool PCR positive for salmonella. Abdominal CT scan shows colitis, mild severity. No abscess. IMPRESSION: This patient has salmonella and dysentery. She has cramps, resolved, fevers and bloody stools and a CT that shows colitis. There is no evidence that she was bacteremic though it does not appear that any blood cultures were done. Given that she is a normal host, we would expect fairly rapid resolution, but she has already been here a full three days, which is a bit unusual. One would expect an uneventful, complete recovery from this and a total duration of therapy should be about seven days of either Cipro or levofloxacin. RECOMMENDATIONS: 1. The levofloxacin should be switched to oral. 2. Total duration will be one week. Levofloxacin 750 once a day orally through December 27. 3. This patient could be discharged at any time from an ID point of view. 4. If she should fail to recover as expected, we would need to obtain an old fashion stool culture and do susceptibilities. A small percentage of [place] non typhoidal salmonella strains are resistant to quinolone. 5. I would anticipate the patient could be discharged tomorrow or the next day at the latest. 6. ID will go ahead and sign off. Please do not hesitate to call if there is additional questions or problems.
[2016-12-24] MEDS: levoFLOXacin 750 mg Tablet PO SCH (08:33)
[2016-12-24] MEDS: HYDROmorphone 1 mg/mL Inj IVPUSH PRN (08:45)
[2016-12-24] MEDS: Ondansetron 2 mg/mL 2 mL Inj IVPUSH PRN (10:14)
--- NOTE | 2016-12-24 10:14 | NUR ---
Social Work: Readiness for Discharge. Data: EMR reviewed. Pt is on day 3 of hospitalization. Per AM multi-disciplinary rounds, pt is likely to discharge tomorrow when medically stable. Pt to discharge home with her friend to transport via POV. SW does not anticipate any discharge needs at this time but will continue to follow if needs arise. Assessment: Pt who is independent at baseline. Plan: Pt to discharge home with her friend to transport via POV. PEPPER does not anticipate any discharge needs at this time but will continue to follow if needs arise. CHRISTIN Szymanski
--- NOTE | 2016-12-24 12:40 | PCM.PNMED ---
Subjective Date of Service Dec 24, 2016 Subjective Levaquin switched to oral, patient still has diarrhea, pain is better but continued, tolerating general diet well, remained afebrile Exam Vital Signs Vital Sign - Last Date Time Temp Pulse Resp B/P Pulse Ox O2 Delivery O2 Flow Rate FiO2 12/24/16 11:58 36.6 82 21 111/68 98 Room Air Intake and Output 12/23/16 12/23/16 12/24/16 Cumulative From/Thru 15:00 23:00 07:00 12/21/16 11:04 - 12/24/16 06:29 Intake Total 2509 ml 2148 ml 9198 ml Output Total 650 ml 1200 ml 3750 ml Balance 1859 ml 948 ml 5448 ml Intake Oral 1320 ml 1020 ml 4130 ml IV Total 1189 ml 1128 ml 5068 ml Output Urine Total 650 ml 1200 ml 3750 ml # Voids 5 13 # Bowel Movements 4 0 11 Exam comfortable no JVD, MMM, no LAD RRR, nl s1, s2 no mrg CTAB, no w,c S,ND, diffuse tenderness, hypoactive bowel sounds warm, no edema, pulses 2/2 IVs and Medications Medications Reviewed: Medications were reviewed in detail Lab and Diagnostics Result Diagram: 12/24/16 0450 12/24/16 0450 X-Rays, CTs and MRIs PROCEDURE: CT ABDOMEN AND PELVIS WITH CONTRAST (PNL-7102) INDICATIONS: abd pain, bloody stools TECHNIQUE: After the administration of intravenous contrast, 5 mm thick sections acquired from the diaphragm to the symphysis. 5 mm coronal and sagittal reformats were acquired. For radiation dose reduction, the following was used: automated exposure control, adjustment of mA and/or kV according to patient size. COMPARISON: [facility], CT, ABD/PELVIS W/CON (PNL), 09/28/2010, 0: 31. FINDINGS: Image quality: Excellent. ABDOMEN: Lung bases: Lung bases are clear. Heart size is normal. Solid organs: Liver and spleen are normal in size and enhancement. Gallbladder appears normal. Biliary system is non dilated. Pancreas enhances normally. No adrenal nodules. Kidneys demonstrate normal size and enhancement , without hydronephrosis. Peritoneum and bowel: Bowel loops demonstrate normal wall thickness and caliber. No free fluid or air. Nodes and vessels: No retroperitoneal or mesenteric adenopathy by size criteria. Aorta and inferior vena cava are normal in size. Miscellaneous: No ventral hernias. PELVIS: Genitourinary: Bladder wall thickness is normal. Miscellaneous: No inguinal hernias or adenopathy. Mild sigmoid and rectal wall thickening, mild pericolonic edema in the fatty soft tissues immediately adjacent. No sign of abscess formation or diverticulitis. The inflammatory process appears to extend into the transverse colon to a mild degree, terminating at approximately the junction of the middle and lateral left transverse colon. Bones: No suspicious bony lesions. No vertebral body compression fractures. IMPRESSION: Colitis appears present, relatively mild in overall severity involving the left third of the transverse colon, descending colon and the sigmoid and rectum to a mild degree. No diverticulitis or abscess is suspected. Dictated by: Zelalem Mendez M.D. on 12/21/2016 at 15:09 Approved by: Zelalem Mendez M.D. on 12/21/2016 at 15:12 Assessment & Plan Acute, active acute, new onset hematochezia secondary to Salmonella colitis POA, CT showed diffuse colitis involving rectum as well. GI/ID on board. -clinically improving with current tx -advance diet as tolerate -stopped flagyl 12/23, continue levaquin iv then PO, for total 7days per -continue IVF 100cc/hr NS, repletes lytes K>4,Mg>2 -s/p PPI iv BID stopped today, H2 hillary prn, zofran prn for n/v, -tylenol prn for pain, mild acute anemia likely from direct blood loss with infectious colitis, initially FOBT+, no signs of hemolytic process given labs-LDH,haptoglobin -h/h stable with active mild hematochezia, improving -trends h/h, transfuse hgb target>7 mild transaminitis, POA, initially concern for coinfection with hepatitis or Cx from salmonella, now resolved dispo:likely tomorrow home diet:general diet dvt ppx:SCD Full code VTE Mechanical Devices: Intermittant Pneumatic CD Time spent 35min Miko Banks MD Dec 24, 2016 12:40
--- NOTE | 2016-12-24 17:44 | NUR ---
Pain Patient with abdominal cramping that waxes and wanes at times. Patient with diarrhea but slightly less frequency. Patient had 1 bout of nausea today but states overall improvement since admission.
--- NOTE | 2016-12-24 23:08 | NUR ---
PAID SEARCH ANALYST; reports: sinus rhythm heart rate 75.
[2016-12-25] MEDS: 0.9% Sodium Chloride 1,000 ML IV SCH ×2 (00:41→11:23)
[2016-12-25 00:59] VITALS: BP 115/69; PULSE 18; RESP 18; O2SAT 98
[2016-12-25 05:36] LABS: BASOPHILS % (AUTO) 0.2 % (0-3); EOSINOPHILS % (AUTO) 2.5 % (0-5); MONOCYTES % (AUTO) 9.7 % (4-12); Mean Corpuscular Hemoglobin 28.4 pg (27.0-35.0); Mean Corpuscular Volume 83.7 fL (81-100); NEUTROPHILS % (AUTO) 56.9 % (40-74); Platelet Count 361 bil/L (150-400)
[2016-12-25 05:46] VITALS: BP 120/71; PULSE 16; RESP 16; O2SAT 97
--- NOTE | 2016-12-25 05:52 | NUR ---
PAIN/GI/ ultram and tylenol effective for abd cramping. No stools reported this shift. No c/o nausea or vomiting.
[2016-12-25 05:55] LABS: Magnesium 1.8 mg/dL (1.6-2.6); Phosphorus 3.4 mg/dL (2.5-4.9)
[2016-12-25 06:04] VITALS: PULSE 71
[2016-12-25] MEDS: levoFLOXacin 750 mg Tablet PO SCH (07:42)
[2016-12-25] MEDS: Ondansetron 2 mg/mL 2 mL Inj IVPUSH PRN (08:24)
[2016-12-25] MEDS ORDERED: ONDA4TAB9 PO (09:15)
[2016-12-25] MEDS ORDERED: TRAM-14 PO (09:15)
[2016-12-25] MEDS ORDERED: LEVO750T9 PO (09:15)
[2016-12-25] MEDS ORDERED: HYDR-4003 PO (09:15)
--- NOTE | 2016-12-25 09:24 | PCM.DIMED ---
Discharge Instructions Date of Service Dec 25, 2016 Dates of Hospitalization December 21, 2016 at 17:39 Discharge Diagnosis Discharge Diagnosis nontyphoidal salmonellosis, enteritis Medication Instructions Additional med instructions take [place] 1tab every 4hours as needed for pain, take Tramadol 1-2tab every 6hours as needed for severe pain, You can take zofran ODT 1tab under your tongue if you get nausea, every 4hours as needed Diet Discharge Diet: Other (slowly advance your diet) Activity Discharge Activity: No restrictions Call your provider Call your provider for: Fever or Chills, Excessive diarrhea Patient Instructions Patient Instructions You were hospitalized with severe abdominal pain, nausea, vomiting, found to have salmonella infection in your colon. you were treated appropriately with antibiotics and medicine. Please follow medicine instruction as above. please note that your bacteria can be contagious from feces to other person, please keep hand hygiene aggressively until your diarrhea resolved Please follow up with your primary doctor in 2weeks Follow-up Provider: Rosendo Mireles MD Follow-up with PCP in: 2 weeks Miko Banks MD Dec 25, 2016 09:24
--- NOTE | 2016-12-25 11:27 | NUR ---
Social Work: Discharge D: EMR reviewed. Pt is on day 4 of hospitalization. Per AM multi-disciplinary rounds, pt will discharge today. Pt to discharge home with her friend to transport via POV. SW does not anticipate any discharge needs at this time but will continue to follow if needs arise. A: Pt who is independent at baseline. P: Pt to discharge home today with her friend to transport via POV. SW does not anticipate any discharge needs at this time but will continue to follow if needs arise. CHRISTIN Szymanski
--- NOTE | 2016-12-25 13:28 | PCM.DC.MED ---
Discharge Summary Date of Service Dec 25, 2016 Dates of Hospitalization Date of Hospital Admission December 21, 2016 at 17:39 Date of Discharge: Dec 25, 2016 Providers: Admitting Physician: Wei Mcarthur MD Primary Care Physician: Rosendo Mireles MD Attending Physician: Wei Mcarthur MD Diagnosis at Time of Discharge Diagnosis at Time of Discharge nontyphoidal salmonellosis, enteritis mild blood loss anemia mild transaminitis Consultations ID Procedures XRay, CTs & MRIs PROCEDURE: CT ABDOMEN AND PELVIS WITH CONTRAST ([id number]) INDICATIONS: abd pain, bloody stools TECHNIQUE: After the administration of intravenous contrast, 5 mm thick sections acquired from the diaphragm to the symphysis. 5 mm coronal and sagittal reformats were acquired. For radiation dose reduction, the following was used: automated exposure control, adjustment of mA and/or kV according to patient size. COMPARISON: [facility], CT, ABD/PELVIS W/CON (PN), 09/28/2010, 0: 31. FINDINGS: Image quality: Excellent. ABDOMEN: Lung bases: Lung bases are clear. Heart size is normal. Solid organs: Liver and spleen are normal in size and enhancement. Gallbladder appears normal. Biliary system is non dilated. Pancreas enhances normally. No adrenal nodules. Kidneys demonstrate normal size and enhancement , without hydronephrosis. Peritoneum and bowel: Bowel loops demonstrate normal wall thickness and caliber. No free fluid or air. Nodes and vessels: No retroperitoneal or mesenteric adenopathy by size criteria. Aorta and inferior vena cava are normal in size. Miscellaneous: No ventral hernias. PELVIS: Genitourinary: Bladder wall thickness is normal. Miscellaneous: No inguinal hernias or adenopathy. Mild sigmoid and rectal wall thickening, mild pericolonic edema in the fatty soft tissues immediately adjacent. No sign of abscess formation or diverticulitis. The inflammatory process appears to extend into the transverse colon to a mild degree, terminating at approximately the junction of the middle and lateral left transverse colon. Bones: No suspicious bony lesions. No vertebral body compression fractures. IMPRESSION: Colitis appears present, relatively mild in overall severity involving the left third of the transverse colon, descending colon and the sigmoid and rectum to a mild degree. No diverticulitis or abscess is suspected. Dictated by: Zelalem Mendez M.D. on 12/21/2016 at 15:09 Approved by: Zelalem Mendez M.D. on 12/21/2016 at 15:12 Brief History HPI obtained on 12/21 26-year-old female with past medical history came in with progressive worsening abdominal pain, diarrhea, bloody stool About 4 days ago, patient started having watery diarrhea, mild degree of abdominal pain continuously, also developed nausea, but no vomiting, pt did not recall any unusual food intake, denied any sick contact. Next day, diarrhea was worse, patient also had some headache, but thought it was from migraine, it did not last long. Next day 2days ago, Patient came to the ED, but was sent home after supportive tx since then, patient started having some blood clots with diarrhea, today, abdominal pain got worse and noticed pure red watery diarrhea, without stool contents, had 3 similar stools in ED. no mucus noticed. this was first episode of blood stools per patient, denied FHx of IBD ED. VS [id number], , afebrile, 98%on RA. stool PCR sent. Abd CT showed diffuse mild colitis involving the left third of the transverse colon, descending colon and the sigmoid and rectum to a mild degree. Hospital Course Acute dx acute, new onset hematochezia secondary to Salmonellosis, enteritis. CT showed diffuse colitis involving rectum as well. pt was consulted by GI/ID. patient was empirically started on flagyl, levaquin. stool PCR later showed salmonella+ , pt is clinically improving with abx. ID recommended 7days of course of oral 750mg Levaquin. Since pt can tolerate diet well, clinically well , deemed safe for d/c. Given persistent diarrhea, ongoing pain, patient was recommended to be cautious about her diet, keep hand hygiene strictly to avoid fecal-oral transmission. Stool sample were sent to [facility] for confirmatory testing but still pending at the time of discharge. mild acute anemia likely from direct blood loss with infectious colitis, initially FOBT+, no signs of hemolytic process given labs-LDH,haptoglobin WNL. h /h remained stable throughout hospitalization. mild transaminitis, POA, initially concern for coinfection with hepatitis or complicated salmonellosis, but resolved Exam Vital Signs (Last) Date Time Temp Pulse Resp B/P Pulse Ox O2 Delivery O2 Flow Rate FiO2 12/25/16 06:04 71 12/25/16 05:46 36.8 16 120/71 97 Room Air Exam comfortable no JVD, MMM, no LAD RRR, nl s1, s2 no mrg CTAB, no w,c S,ND, diffuse tenderness, hypoactive bowel sounds warm, no edema, pulses 2/2 Test 12/21/16 14:31 12/22/16 08:35 12/23/16 09:49 12/25/16 04:46 Hold Urine Received (Received) Haptoglobin 288mg/dL (34-200) Lactate Dehydrogenase 190U/L (100-190) Hepatitis A IgM Antibody Negative (Negative) Hepatitis B Surface Antigen Negative (Negative) Hepatitis B Core IgM Antibody Negative (Negative) Hepatitis C Antibody <0.1s/co ratio (0.0-0.9) Hepatitis C Comment Comment (.) Procalcitonin 0.21ng/mL (0.00-0.08) White Blood Count 8.4th/mm3 (3.8-10.1) Red Blood Count 3.98mil/mm3 (3.90-5.20) Hemoglobin 11.3g/dL (12.0-15.6) Hematocrit 33.3% (35.0-46.0) Mean Corpuscular Volume 83.7fL (81-100) Mean Corpuscular Hemoglobin 28.4pg (27.0-35.0) Mean Corpuscular Hemoglobin Concent 33.9% (32.0-37.0) Red Cell Distribution Width 13.7% (12.3-15.4) Platelet Count 361bil/L (150-400) Neutrophils (%) (Auto) 56.9% (40-74) Lymphocytes (%) (Auto) 29.9% (14-46) Monocytes (%) (Auto) 9.7% (4-12) Eosinophils (%) (Auto) 2.5% (0-5) Basophils (%) (Auto) 0.2% (0-3) Sodium Level 139mEq/L (134-144) Potassium Level 3.9mEq/L (3.5-5.2) Chloride Level 103mEq/L (97-108) Carbon Dioxide Level 24mmol/L (18-29) Blood Urea Nitrogen 9mg/dL (6-20) Creatinine 0.51mg/dL (0.57-1.00) Estimat Glomerular Filtration Rate 210mL/min (>59) Glucose Level 108mg/dL (60-99) Calcium Level 8.7mg/dL (8.5-10.1) Phosphorus Level 3.4mg/dL (2.5-4.9) Magnesium Level 1.8mg/dL (1.6-2.6) Total Bilirubin 0.2mg/dL (0.0-1.2) Aspartate Amino Transf (AST/SGOT) 20U/L (0-50) Alanine Aminotransferase (ALT/SGPT) 25U/L (0-32) Alkaline Phosphatase 80U/L (25-150) Total Protein 5.8g/dL (6.4-8.4) Albumin 3.1g/dL (3.4-5.0) Discharge Medications Discharge Medications Levofloxacin (Levaquin) 750 Mg Tablet 750 MG PO DAILYAC Prescribed by: WEI MCARTHUR MD As needed Hydrocodone-Acetaminophen 5-325 mg (Hydrocodone-Acetaminophen 5-325 mg) 1 Each Tablet 1-2 TABLET PO Q4H PRN PRN For Pain Prescribed by: WEI MCARTHUR MD Ondansetron ODT (Zofran ODT) 4 Mg Tablet 4 MG PO Q4H PRN PRN For Nausea Prescribed by: WEI MCARTHUR MD Tramadol (Ultram) 50 Mg Tablet 50 MG PO Q4H PRN PRN For Mild Pain Prescribed by: EWI MCARTHUR MD Additional med instructions take [place] 1tab every 4hours as needed for pain, take Tramadol 1-2tab every 6hours as needed for severe pain, You can take zofran ODT 1tab under your tongue if you get nausea, every 4hours as needed Followup Plan Disposition: home Discharge Diet: Other (slowly advance your diet) Discharge Activity: No restrictions Patient Instructions You were hospitalized with severe abdominal pain, nausea, vomiting, found to have salmonella infection in your colon. you were treated appropriately with antibiotics and medicine. Please follow medicine instruction as above. please note that your bacteria can be contagious from feces to other person, please keep hand hygiene aggressively until your diarrhea resolved Please follow up with your primary doctor in 2weeks Follow-up Provider: Rosendo Mireles MD Follow-up with PCP in: 2 weeks Time spent 65min Wei Mcarthur MD Dec 25, 2016 13:28
--- NOTE | 2016-12-25 13:45 | NUR ---
DISCHARGE Patient stated she was feeling better and ready to go home, although still had 1 episode of nausea this morning. Complaining of off/on abdominal cramping. Tolerating general diet and oral antibiotics without any problem. Educated patient about eating easy to digest foods until cramping and pain has stopped. Patient verbalized understanding. Gave hard copy Rx to patient. Went over discharge instructions and importance of good hand hygiene. Verbalized understanding. Saline lock IV was removed from right hand. Telemetry was removed. Patient got dressed and ambulated independently off unit with all patient belongings.
== END 2016-12-25 13:45 | disposition home or self-care (01) | DRG 373 ==
LOC: SED 10:57 → OSC 17:39 → OBSVTOIN 17:39
PROVIDERS: ADMIT Internal Medicine; ATTEND Internal Medicine
DX: A02.0 Salmonella enteritis (principal); E86.0 Dehydration; D50.0 Iron deficiency anemia secondary to blood loss (chronic)